=== PATIENT | female | born 1995 | race American Indian/Alaskan Native ===

== ENCOUNTER 2017-01-11 21:33 | Outpatient (CLI) | payer MEDICAID ==
[~2017-01-11 21:33] MED LIST: TYLENOL PO ONE
[2017-01-11 22:12] VITALS: BP 108/66
--- NOTE | 2017-01-11 22:46 | Emergency Department Report ---
Entered by LORNE ABEZ, acting as scribe for MARK GARZA PA. ED Fall HPI - General Chief Complaint: Fall Stated Complaint: FALL INJURY TO KNEES Time Seen by Provider: 01/11/17 20:00 Source: patient Mode of arrival: Ambulatory - History of Present Illness Initial Comments: 21 y/o female that is 33 weeks with no significant PMHx presents to the ED c/o a fall injury that occurred today. 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 Patient states she landed on top her niece, who she was holding. Patient states her OB did not see her because she fell, and recommended she come to the ED. In the ED, patient c/o left knee pain, but she denies abdominal pain, vaginal bleeding, decreased movement. Rates pain an 8/10 in severity, which she describes as aching in quality. Aggravated with movement and alleviated with inactivity. NKDA. SEALS Complaint: fall -: This afternoon Fall From: other (tripped on ground level stepping over a curb) When Fall Occurred: 4-6 hours [employer] Fall Witnessed: yes, by family Place Fall Occurred: other Loss of Consciousness: none Prolonged Down Time?: unclear Symptoms Prior to Fall: none Location: other (left knee) Location - Extremities: Left: Knee Severity: severe Severity scale (0 -10): 8 Quality: aching Context: tripped/slipped Associated Symptoms: denies. denies: headache, neck pain, numbness, weakness, chest paint, shortness of breath, abdominal pain, hematuria, unable to walk, lightheaded, vertigo, confusion - Related Data Previous Rx's Medication Instructions Recorded Last Taken Type Acetaminophen [Acetaminophen TAB] 375 mg PO Q6H #40 tablet 01/11/17 Unknown Rx Allergies Allergy/AdvReac Type Severity Reaction Status Date / Time No Known Allergies Allergy Unverified 01/11/17 16:16 ED Review of Systems Comment: All other systems reviewed and negative Constitutional: denies: chills, fever Eyes: denies: eye pain, eye discharge, vision change ENT: denies: ear pain, throat pain Respiratory: denies: cough, orthopnea, shortness of breath, SOB with exertion, SOB at rest, stridor, wheezing Cardiovascular: denies: chest pain, palpitations Endocrine: no symptoms reported Gastrointestinal: denies: abdominal pain, nausea, vomiting, diarrhea Genitourinary: denies: urgency, dysuria, hematuria, discharge, other (vaginal bleeding) Musculoskeletal: myalgia (left knee pain). denies: back pain, joint swelling, arthralgia Skin: denies: rash, lesions Neurological: denies: headache, weakness, numbness, paresthesias Hematological/Lymphatic: denies: easy bleeding, easy bruising ED Past Medical Hx - Past Medical History Previous Medical History?: Yes Additional medical history: Miscarriage x 2 - Surgical History Past Surgical History?: No - Social History Smoking Status: Never Smoker Substance Use Type: None - Medications Home Medications: Home Medications Medication Instructions Recorded Confirmed Last Taken Type Acetaminophen [Acetaminophen TAB] 375 mg PO Q6H #40 tablet 01/11/17 Unknown Rx ED Physical Exam - General Limitations: No Limitations General appearance: alert, in no apparent distress - Head Head exam: Present: atraumatic, normocephalic - Eye Eye exam: Present: normal appearance, PERRL, EOMI Pupils: Present: normal accommodation - ENT ENT exam: Present: normal exam, mucous membranes moist, normal external ear exam - Neck Neck exam: Present: normal inspection, full ROM. Absent: tenderness, meningismus, lymphadenopathy - Respiratory Respiratory exam: Present: normal lung sounds bilaterally. Absent: respiratory distress, wheezes, rales, rhonchi, stridor, chest wall tenderness, accessory muscle use, decreased breath sounds - Cardiovascular Cardiovascular Exam: Present: regular rate, normal rhythm, normal heart sounds. Absent: systolic murmur, diastolic murmur, rubs, gallop - GI/Abdominal GI/Abdominal exam: Present: soft, distended (gravid abdomen), normal bowel sounds. Absent: tenderness, guarding, rebound, rigid - Extremities Exam Extremities exam: Present: full ROM, tenderness (low aspect of left knee tenderness), normal capillary refill. Absent: pedal edema, joint swelling, calf tenderness - Expanded Lower Extremity Exam Left Hip exam: Present: normal inspection, full ROM Upper Leg exam: Present: normal inspection, full ROM Knee exam: Present: full ROM, tenderness (low aspect of left knee), swelling, abrasion (minor abrasions to low aspect of left knee with no bleeding present), full knee extension. Absent: laceration, ecchymosis, deformity, crepidus, dislocation, erythema, effusion, pain w/ pronation/supination, posterior draw sign, pain/laxity with valgus, pain/laxity with varus Lower Leg exam: Present: normal inspection, full ROM Ankle exam: Present: normal inspection, full ROM Foot/Toe exam: Present: normal inspection, full ROM Neuro vascular tendon exam: Present: no vascular compromise. Absent: pulse deficit, abnormal cap refill, motor deficit, sensory deficit, tendon deficit, extremity cold to touch, pallor, abnormal 2-point discrimination, decreased fine /light touch - Back Exam Back exam: Present: normal inspection, full ROM. Absent: tenderness, CVA tenderness (R), CVA tenderness (L), muscle spasm, paraspinal tenderness, vertebral tenderness - Neurological Exam Neurological exam: Present: alert, oriented X3, normal gait - Psychiatric Psychiatric exam: Present: normal affect, normal mood - Skin Skin exam: Present: warm, dry, intact, abrasion (minor abrasions to low aspect of left knee with no bleeding present). Absent: rash ED Course Vital Signs 01/11/17 16:16 Temperature 98.6 F Pulse Rate 83 Respiratory 20 Rate Blood Pressure 106/65 O2 Sat by Pulse 99 Oximetry - Consultations Consultation #1: Spoke to the charge nurse at the upper and delivery to let them aware of the patient will be sent for evaluation. She was taken to labor and delivery for further evaluation. 01/11/17 22:44 ED Medical Decision Making - Medical Decision Making 21-year-old female presents with knee pain secondary to a fall that occurred today. ED course: Patient will receive 1 dose of Tylenol. Patient is not ill-appearing. Discussed with patient to ice and stretch knee, and keep knee elevated. Discussed with patient to apply Neosporin to left knee. Discussed with patient that she will be seen by this hospital's Labor and Delivery for further evaluation Discussed the follow-up for with her OB. Discuss if her symptoms return or worsen to return to the ED ED Disposition Clinical Impression: Fall Qualifiers: Encounter type: initial encounter Qualified Code(s): W19.XXXA - Unspecified fall, initial encounter Abrasion of knee, left Qualifiers: Encounter type: initial encounter Qualified Code(s): S80.212A - Abrasion, left knee, initial encounter Disposition: [id number] SHRT-TRM GEN HOSP IP Is pt being admited?: No Does the pt Need Aspirin: No Condition: Stable Time of Disposition: 09:30 This documentation as recorded by the NESTOR rashid JASMINE,accurately reflects the service I personally performed and the decisions made by ,MARK GARZA PA.
== END 2017-01-12 00:02 | disposition short-term general hospital (02) ==
LOC: TRG 21:33 → EDSTATUS 21:34 → TRG 21:36
PROVIDERS: ATTEND Obstetrics & Gynecology
DX: O26.893 Other specified pregnancy related conditions, third trimester (principal); S89.92XA Unspecified injury of left lower leg, initial encounter; S89.91XA Unspecified injury of right lower leg, initial encounter; X58.XXXA Exposure to other specified factors, initial encounter; Y93.89 Activity, other specified; Y92.89 Other specified places as the place of occurrence of the external cause; Y99.8 Other external cause status; Z3A.33 33 weeks gestation of pregnancy